=== PATIENT | male | born 1950 | race American Indian/Alaskan Native ===

== ENCOUNTER 2017-09-25 19:58 | Emergency (ER) | payer SELFPAY ==
[2017-09-25 20:22] VITALS: BP 152/109
[2017-09-25] MEDS ORDERED: CORDARONE IV ONE (20:28)
[2017-09-25] MEDS ORDERED: ADRENALIN ONE ×2 (20:28→20:59)
[2017-09-25 20:29] LABS: Hematocrit 44.5 % (35.5-45.6); Hemoglobin 14.1 gm/dl (11.8-15.2); Mean Corpuscular HGB Conc 32 % (32-34); Mean Corpuscular Volume 73 fl (84-94); Platelet Count 225 K/mm3 (140-440); Red Blood Count 6.13 M/mm3 (3.65-5.03); Red Cell Distribution Width 15.9 % (13.2-15.2); White Blood Count 13.4 K/mm3 (4.5-11.0)
[2017-09-25 20:30] LABS: Mean Corpuscular Hemoglobin 23 pg (28-32)
[2017-09-25] MEDS ORDERED: ACTIVASE ONE (20:40)
[2017-09-25] MEDS ORDERED: HEPARIN 10,000 UNITS/10 ML ONE (20:41)
[2017-09-25] MEDS ORDERED: HEPARIN/ 0.45% NACL-25,000 UNIT/500 ML 0 UNIT/0 ML BAG ONE (20:41)
[2017-09-25] MEDS ORDERED: CATHFLO ONE (20:41)
[2017-09-25 20:43] LABS: Anion Gap 23 mmol/L; BUN/Creatinine Ratio 13; Blood Urea Nitrogen 15 mg/dL (9-20); Calcium 9.6 mg/dL (8.4-10.2); Carbon Dioxide 20 mmol/L (22-30); Chloride 100.4 mmol/L (98-107); Glucose 120 mg/dL (75-100); Potassium 3.6 mmol/L (3.6-5.0); Sodium 140 mmol/L (137-145)
[2017-09-25 21:00] LABS: Basophils % (Manual) 0 % (0.0-1.8); Blastocytes % (Manual) 0 %
[2017-09-25 21:01] LABS: Anisocytosis 1+; Poikilocytosis 1+
[2017-09-25 21:02] LABS: Diff Status Complete
--- NOTE | 2017-09-25 21:23 | Emergency Department Report ---
ED Chest Pain HPI - General Chief Complaint: Chest Pain Stated Complaint: CP Time Seen by Provider: 09/25/17 21:17 Source: patient Mode of arrival: Ambulatory Limitations: No Limitations - History of Present Illness Initial Comments: Began to have chest pain described as pressure that began at roughly 1930, radiates to both arms. EKG at triage reveals ST segment elevation to lead I, V2 , V3, V5, and ST segment depression in lead III. STEMI protocol initiated. 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 He denies being a smoker, or ETOH user, has recently returned from [facility] one week ago. While nursing assessment was in progress, patient became suddenly unresponsive, heart rate increased to over 200, and he was noted to have V tach on the monitor. MD Complaint: chest pain -: Sudden Onset: during rest Pain Location: substernal Pain Radiation: RUE, LUE Severity: moderate Severity scale (0 -10): 6 Quality: heaviness, pressure Consistency: constant Improves With: nothing Worsens With: nothing re: nausea, diaphoresis, dyspnea Other Symptoms: denies: cough, fever Treatments Prior to Arrival: aspirin (reports taking a full size ASA) - Related Data Home Medications Medication Instructions Recorded Confirmed Last Taken No Known Home Medications [No 09/25/17 09/25/17 Unknown Reported Home Medications] Allergies Allergy/AdvReac Type Severity Reaction Status Date / Time No Known Allergies Allergy Verified 09/25/17 20:39 Heart Score - HEART Score History: Highly suspicious EKG: Normal (ST ELEVATION) Age: > 65 Risk factors: 1-2 risk factors Troponin: < normal limit HEART Score: 5 ED Review of Systems ROS: Stated complaint: CP Other details as noted in HPI Comment: All other systems reviewed and negative Constitutional: see HPI Eyes: denies: eye pain, eye discharge, vision change ENT: denies: ear pain, throat pain Respiratory: shortness of breath Cardiovascular: as per HPI, chest pain Endocrine: no symptoms reported Gastrointestinal: as per HPI Genitourinary: as per HPI Musculoskeletal: as per HPI Skin: as per HPI Neurological: as per HPI Psychiatric: as per HPI Hematological/Lymphatic: as per HPI ED Past Medical Hx - Past Medical History Previous Medical History?: No - Surgical History Past Surgical History?: No - Social History Smoking Status: Never Smoker Substance Use Type: None - Medications Home Medications: Home Medications Medication Instructions Recorded Confirmed Last Taken Type No Known Home Medications [No 09/25/17 09/25/17 Unknown History Reported Home Medications] ED Physical Exam - General Limitations: No Limitations General appearance: alert, in distress - Head Head exam: Present: atraumatic - Eye Eye exam: Present: normal appearance, PERRL, EOMI - ENT ENT exam: Present: normal exam - Neck Neck exam: Present: normal inspection - Respiratory Respiratory exam: Present: normal lung sounds bilaterally. Absent: wheezes, rales, rhonchi - Cardiovascular Cardiovascular Exam: Present: regular rate, normal heart sounds - GI/Abdominal GI/Abdominal exam: Present: soft, distended, tenderness - Extremities Exam Extremities exam: Present: normal inspection - Back Exam Back exam: Present: normal inspection - Neurological Exam Neurological exam: Present: alert, oriented X3 - Psychiatric Psychiatric exam: Present: normal affect, normal mood - Skin Skin exam: Present: warm, dry, intact ED Course Vital Signs 09/25/17 09/25/17 20:15 20:25 Temperature 97.6 F Pulse Rate 91 H Respiratory 20 Rate Blood Pressure 152/109 O2 Sat by Pulse 90 Oximetry - Reevaluation(s) Reevaluation #1: 09/25/17 21:27 Patient was coded shortly after nursing assessment began. CPR was initiated. Patient did have a shockable rhythm, but no pulse was detected. 6 rounds of Epinephrine was given. Patient never did regain a pulse (checked carotid and femoral). Ultrasound was used to assess heart function, no spontaneous ventricular activity was noted. Intubation was attempted but difficult. After multiple rounds of CPR, it was determined that efforts were now futile. Cardiology did arrive and we did pronounce the patient. I discussed with situation with the family. ELLI score - Elli Score Age > 65: (1) Yes Aspirin use within the Past 7 Days: (1) Yes 3 or more CAD Risk Factors: (0) No 2 or more Angina events in past 24 hrs: (0) No Known CAD with more than 50% Stenosis: (0) No Elevated Cardiac Markers: (0) No ST Deviation Greater than 0.5mm: (1) Yes ELLI Score: 3 ED Medical Decision Making - Lab Data Result diagrams: 09/25/17 20:13 09/25/17 20:13 - EKG Data -: EKG Interpreted by Ms EKG shows normal: sinus rhythm, axis (left) Rate: normal - EKG Data Interpretation: acute TX 09/25/17 21:[address] elevation: I, V2, V3, V5 ST Depression: III Critical Care Time: Yes Critical care time in (mins) excluding proc time.: 60 Critical care attestation.: If time is entered above; I have spent that time in minutes in the direct care of this critically ill patient, excluding procedure time. ED Disposition Clinical Impression: STEMI (ST elevation myocardial infarction) Qualifiers: Involved coronary artery: unspecified coronary artery Qualified Code(s): I21.3 - ST elevation (STEMI) myocardial infarction of unspecified site Disposition: DC-20 Is pt being admited?: No Does the pt Need Aspirin: No Referrals: PRIMARY CARE, [Primary Care Provider] - 3-5 Days Time of Disposition: 21:38
== END 2017-09-25 23:50 ==
LOC: ED 19:58
DX: I21.3 ST elevation (STEMI) myocardial infarction of unspecified site (principal)
CPT/HCPCS: 36415; 80048; 84484; 85007; 85025; 92950; 93005; 93010; 99291; J0171; J0282; J1644; J2997